=== PATIENT | female | born 1995 | race American Indian/Alaskan Native ===

== ENCOUNTER 2017-10-04 20:39 | Emergency (ER) | payer OTHER ==
[2017-10-04] MEDS ORDERED: TYLENOL ONE (21:13)
[2017-10-04] MEDS ORDERED: TYLENOL PO ONE (21:25)
[2017-10-04 21:40] LABS: HCG Qualitative,Urine Negative (Negative)
--- NOTE | 2017-10-04 23:01 | XRay Report ---
FINAL REPORT PROCEDURE: XR KNEE BILAT 1-2V TECHNIQUE: Bilateral knee radiographs, AP and lateral views. HISTORY: Bilateral knee pain COMPARISON: No prior studies are available for comparison. FINDINGS: Fracture (s) and/or Dislocation(s): None . Joint space(s): Normal. Soft tissues: Normal. Bone mineralization: Normal. Foreign bodies: None. IMPRESSION: Normal Examination.
--- NOTE | 2017-10-04 23:04 | XRay Report ---
FINAL REPORT PROCEDURE: XR SPINE CERVICAL 2-3V TECHNIQUE: Cervical spine radiographs, AP, lateral, and open-mouth odontoid views. CPT 99204 HISTORY: Neck Pain COMPARISON: No prior studies are available for comparison. FINDINGS: Prevertebral soft tissues: Normal . Alignment: There is loss of cervical lordosis. Vertebral body heights/Disk spaces: Normal . Fracture(s): None . Facets: Normal . Bone mineralization: Normal . IMPRESSION: No acute fracture. Loss of cervical lordosis is most likely secondary to spasm.
--- NOTE | 2017-10-04 23:04 | XRay Report ---
FINAL REPORT PROCEDURE: XR SPINE LUMBOSACRAL 2-3V TECHNIQUE: Lumbar spine radiographs, frontal and lateral views. CPT 02787 HISTORY: Back pain COMPARISON: No prior studies are available for comparison. FINDINGS: Alignment: Normal . Vertebral body heights/Disk spaces: Normal . Fracture(s): None . Facets: Normal . Bone mineralization: Normal . IMPRESSION: Normal Examination
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
[2017-10-05 01:11] VITALS: BP 108/77
== END 2017-10-05 01:20 | disposition home or self-care (01) ==
LOC: ED 20:39
DX: S39.012A Strain of muscle, fascia and tendon of lower back, initial encounter (principal); S13.4XXA Sprain of ligaments of cervical spine, initial encounter; S83.8X1A Sprain of other specified parts of right knee, initial encounter; S83.8X2A Sprain of other specified parts of left knee, initial encounter; V89.2XXA Person injured in unspecified motor-vehicle accident, traffic, initial encounter
CPT/HCPCS: 72040; 72100; 81025; 99284

== ENCOUNTER 2020-04-22 18:03 | Observation (INO) | payer BC, MEDICAID ==
[2020-04-22] MEDS ORDERED: PIPERACIL/TAZOBACTA 4.5/NS 100 4.5 GM/100 ML VIAL IV ONE (18:35)
[2020-04-22] MEDS ORDERED: SODIUM CHLORIDE 0.9% 1000 ML 1,000 ML IV ONE ×2 (18:45→20:00)
[2020-04-22] MEDS ORDERED: ONDANSETRON 4 MG/2 ML INJ IV ONE (18:45)
[2020-04-22] MEDS ORDERED: MORPHINE 4 MG/1 ML INJ IV ONE ×2 (18:45→22:38)
--- NOTE | 2020-04-22 19:11 | Emergency Department Report ---
ED Abdominal Pain HPI - General Chief Complaint: Abdominal Pain Stated Complaint: POSS APENDIX RUPTURE Time Seen by Provider: 04/22/20 18:34 Source: patient Mode of arrival: Ambulatory Limitations: No Limitations - History of Present Illness Initial Comments: 24-year-old female no significant past medical surgical history presents to the hospital complaining of right lower quadrant abd pain for the last 3 days. Pain is currently 7/10 intensity, worse with laughing, movement, and palpation. Positive associated nausea vomiting. She denies fever. She had a recent negative test. She went to urgent care earlier today and was sent for outpatient CT scanning with [facility] radiology clinic in [place]. Patient was sent to the ED with the CT images on disc and told that she possibly has ruptured appendicitis. No report is available. - Related Data Previous Rx's Medication Instructions Recorded Last Taken Type Cyclobenzaprine [Flexeril] 10 mg PO QHS PRN #7 tablet 10/05/17 Unknown Rx Ibuprofen [Motrin] 600 mg PO Q8H PRN #30 tablet 10/05/17 Unknown Rx Allergies Allergy/AdvReac Type Severity Reaction Status Date / Time No Known Allergies Allergy Verified 10/04/17 21:18 ED Review of Systems ROS: Stated complaint: POSS APENDIX RUPTURE Other details as noted in HPI Comment: All other systems reviewed and negative ED Past Medical Hx - Past Medical History Previous Medical History?: No - Surgical History Past Surgical History?: No - Social History Smoking Status: Never Smoker - Medications Home Medications: Home Medications Medication Instructions Recorded Confirmed Last Taken Type Cyclobenzaprine [Flexeril] 10 mg PO QHS PRN #7 tablet 10/05/17 Unknown Rx Ibuprofen [Motrin] 600 mg PO Q8H PRN #30 tablet 10/05/17 Unknown Rx ED Physical Exam - General Limitations: No Limitations - Other Other exam information: General: No acute distress Head: Atraumatic Eyes: normal appearance ENT: Moist mucous membranes Neck: Normal appearance, no midline tenderness Chest: Clear to auscultation bilaterally CV: Regular rate and rhythm Abdomen: Soft, normal bowel sounds, tenderness to right lower quadrant with rebound tenderness. No guarding. No distention. Back: Normal inspection Extremity: Normal inspection, full range of motion Neuro: Alert O x 3, no facial asymmetry, speech clear, no gross motor sensory deficit Psych: Appropriate behavior Skin: No rash ED Course Vital Signs 04/22/20 04/22/20 04/22/20 18:14 18:59 23:09 Temperature 98.6 F 98 F Pulse Rate 107 H 76 Respiratory 18 18 16 Rate Blood Pressure 123/75 Blood Pressure 127/81 [Left] O2 Sat by Pulse 100 98 Oximetry - Reevaluation(s) Reevaluation #1: 04/22/20 19:11 pt comes in to the ed with her ct scan and and and pelvis with IV contrast on disc. No one is answering the number provided by the patient to call for official report. I discussed this with radiologic technologist chief and she spoke to her restaurant supervisor and they are calling someone in so that they can upload the images to PACS for official read by the radiologist since we do not have in-house radiologist at this time. In the meantime patient is receiving Zosyn, pain medication IV fluids, n.p.o., labs are pending - Consultations Consultation #1: 04/22/20 19:40, 20:05 Dr Joe carrillo responded at 20:20 will operate in am, npo, abx, ivf ED Medical Decision Making - Lab Data Result diagrams: 04/22/20 18:46 04/22/20 18:46 Lab Results 04/22/20 04/22/20 04/22/20 Range/Units 18:46 18:46 18:46 WBC 9.2 (4.5-11.0) K/mm3 RBC 4.26 (3.65-5.03) M/mm3 Hgb 14.0 (10.1-14.3) gm/dl Hct 41.2 (30.3-42.9) % MCV 97 (79-97) fl MCH 33 H (28-32) pg MCHC 34 (30-34) % RDW 12.8 L (13.2-15.2) % Plt Count 241 (140-440) K/mm3 Lymph % (Auto) 15.5 (13.4-35.0) % [place] % (Auto) 7.4 H (0.0-7.3) % Eos % (Auto) 0.2 (0.0-4.3) % Baso % (Auto) 0.3 (0.0-1.8) % Lymph # (Auto) 1.4 (1.2-5.4) K/mm3 [place] # (Auto) 0.7 (0.0-0.8) K/mm3 Eos # (Auto) 0.0 (0.0-0.4) K/mm3 Baso # (Auto) 0.0 (0.0-0.1) K/mm3 Seg Neutrophils % 76.6 H (40.0-70.0) % Seg Neutrophils # 7.0 (1.8-7.7) K/mm3 PT 15.8 H (12.2-14.9) Sec. INR 1.23 H (0.87-1.13) APTT 31.9 (24.2-36.6) Sec. Sodium 135 L (137-145) mmol/L Potassium 4.0 (3.6-5.0) mmol/L Chloride 97.8 L (98-107) mmol/L Carbon Dioxide 25 (22-30) mmol/L Anion Gap 16 mmol/L BUN 8 (7-17) mg/dL Creatinine 0.7 (0.6-1.2) mg/dL Estimated GFR > 60 ml/min BUN/Creatinine Ratio 11 % Glucose 70 (65-100) mg/dL Calcium 9.4 (8.4-10.2) mg/dL Total Bilirubin 0.70 (0.1-1.2) mg/dL AST 15 (5-40) units/L ALT 8 (7-56) units/L Alkaline Phosphatase 51 (35-129) units/L Total Protein 7.6 (6.3-8.2) g/dL Albumin 4.4 (3.9-5) g/dL Albumin/Globulin Ratio 1.4 % HCG, Qual (Negative) Blood Type Antibody Screen 04/22/20 04/22/20 Range/Units 18:46 18:46 WBC (4.5-11.0) K/mm3 RBC (3.65-5.03) M/mm3 Hgb (10.1-14.3) gm/dl Hct (30.3-42.9) % MCV (79-97) fl MCH (28-32) pg MCHC (30-34) % RDW (13.2-15.2) % Plt Count (140-440) K/mm3 Lymph % (Auto) (13.4-35.0) % [place] % (Auto) (0.0-7.3) % Eos % (Auto) (0.0-4.3) % Baso % (Auto) (0.0-1.8) % Lymph # (Auto) (1.2-5.4) K/mm3 [place] # (Auto) (0.0-0.8) K/mm3 Eos # (Auto) (0.0-0.4) K/mm3 Baso # (Auto) (0.0-0.1) K/mm3 Seg Neutrophils % (40.0-70.0) % Seg Neutrophils # (1.8-7.7) K/mm3 PT (12.2-14.9) Sec. INR (0.87-1.13) APTT (24.2-36.6) Sec. Sodium (137-145) mmol/L Potassium (3.6-5.0) mmol/L Chloride (98-107) mmol/L Carbon Dioxide (22-30) mmol/L Anion Gap mmol/L BUN (7-17) mg/dL Creatinine (0.6-1.2) mg/dL Estimated GFR ml/min BUN/Creatinine Ratio % Glucose (65-100) mg/dL Calcium (8.4-10.2) mg/dL Total Bilirubin (0.1-1.2) mg/dL AST (5-40) units/L ALT (7-56) units/L Alkaline Phosphatase (35-129) units/L Total Protein (6.3-8.2) g/dL Albumin (3.9-5) g/dL Albumin/Globulin Ratio % HCG, Qual Negative (Negative) Blood Type O POSITIVE Antibody Screen Negative - Radiology Data Radiology results: report reviewed CT abdomen pelvis with IV contrast as read by our radiologist after uploading images shows findings consistent with appendicitis without rupture or a ppendiceal abscess. Small quantity of fluid in the pelvis is likely reactive Hard copy of report placed on chart - Medical Decision Making hard copy of report placed on chart pt provided the disc to hold so it will not accident get lost on chart Patient had acute appendicitis without rupture. Patient made n.p.o., received IV fluids and IV Zosyn. Case discussed with on-call surgeon Dr. Miller who plans to perform appendectomy in a.m. Patient to be admitted to hospital service Dr. John/[facility] Critical Care Time: No Critical care attestation.: If time is entered above; I have spent that time in minutes in the direct care of this critically ill patient, excluding procedure time. ED Disposition Clinical Impression: Acute appendicitis Disposition: OP ADMIT IP TO THIS HOSP Is pt being admited?: Yes Condition: Stable Time of Disposition: 22:14 (Dr John/hosp)
[2020-04-22 19:13] LABS: Basophils % (Auto) 0.3 % (0.0-1.8); Eosinophils % (Auto) 0.2 % (0.0-4.3); Hematocrit 41.2 % (30.3-42.9); Lymphocytes # (Auto) 1.4 K/mm3 (1.2-5.4); Lymphocytes % (Auto) 15.5 % (13.4-35.0); Mean Corpuscular HGB Conc 34 % (30-34); Mean Corpuscular Volume 97 fl (79-97); Monocytes # (Auto) 0.7 K/mm3 (0.0-0.8); Monocytes % (Auto) 7.4 % (0.0-7.3); Platelet Count 241 K/mm3 (140-440); Red Blood Count 4.26 M/mm3 (3.65-5.03); Red Cell Distribution Width 12.8 % (13.2-15.2)
[2020-04-22 19:23] LABS: INR 1.23 (0.87-1.13)
[2020-04-22 19:24] LABS: Partial Thromboplastin Time 31.9 Sec. (24.2-36.6)
[2020-04-22 19:35] LABS: Alanine Aminotransferase 8 units/L (7-56); Albumin 4.4 g/dL (3.9-5); BUN/Creatinine Ratio 11; Blood Urea Nitrogen 8 mg/dL (7-17); Calcium 9.4 mg/dL (8.4-10.2); Hemolysis Index 8
[2020-04-22] MEDS ORDERED: MAGNESIUM HYDROXIDE (MOM) ORAL LIQD UDC PO PRN (22:50)
[2020-04-22] MEDS ORDERED: ACETAMINOPHEN 325 MG TAB PO PRN (22:50)
--- NOTE | 2020-04-22 22:56 | History and Physical Report ---
History of Present Illness Date of examination: 04/22/20 Date of admission: 04/22/20 22:14 Chief complaint: Abdominal Pain History of present illness: 24-year old -[place] female presenting to the emergency room today complaining of abdominal pain which has been ongoing for about 3 days. Abdominal pain is said to be more on the right lower abdomen. On a scale of 10 pain was about 7-8 over 10 in severity. Pain is worse on movement. She has had some nausea but no vomiting and no diarrhea. She denies any fever or chills. She denies any chest pain or shortness of breath. She denies any hematuria or dysuria. She denies any vaginal discharge. Patient went to an urgent care facility prior to reporting to the emergency room. She was sent on outpatient CT scan at [facility] radiology in [place]. CT scan was significant for acute appendicitis. General surgeon Dr. Diaz has been consulted by the ER physician. Patient has been started on IV fluid, IV analgesic medication and empiric IV antibiotics. Past History Past Medical History: No medical history Past Surgical History: No surgical history Social history: no significant social history Family history: cancer (Cervical cancer in mother, Breast ca. in grand mother), diabetes (in parents) Medications and Allergies Allergies Allergy/AdvReac Type Severity Reaction Status Date / Time No Known Allergies Allergy Verified 10/04/17 21:18 Home Medications Medication Instructions Recorded Confirmed Last Taken Type Cyclobenzaprine [Flexeril] 10 mg PO QHS PRN #7 tablet 10/05/17 Unknown Rx Ibuprofen [Motrin] 600 mg PO Q8H PRN #30 tablet 10/05/17 Unknown Rx Active Meds: Active Medications Acetaminophen (Tylenol) 650 mg PO Q4H PRN PRN Reason: Pain MILD(1-3)/Fever >100.5/MOONEY Sodium Chloride (Nacl 0.9% 1000 Ml) 1,000 mls @ 150 mls/hr IV BOLUS ONE Stop: 04/23/20 02:39 Last Admin: 04/22/20 20:54 Dose: 150 mls/hr Documented by: Sodium Chloride (Nacl 0.9% 1000 Ml) 1,000 mls @ 125 mls/hr IV DIRECT AMBER Piperacillin Sod/Tazobactam Sod (Zosyn/Ns 3.375gm/50ml) 3.375 gm in 50 mls @ 100 mls/hr IV Q8HR AMBER; Protocol Magnesium Hydroxide (Milk Of Magnesia) 30 ml PO Q4H PRN PRN Reason: Constipation Morphine Sulfate (Morphine) 2 mg IV Q4H PRN PRN Reason: Pain, Moderate (4-6) Ondansetron HCl (Zofran) 4 mg IV Q8H PRN PRN Reason: Nausea And Vomiting Sodium Chloride (Sodium Chloride Flush Syringe 10 Ml) 10 ml IV BID AMBER Sodium Chloride (Sodium Chloride Flush Syringe 10 Ml) 10 ml IV PRN PRN PRN Reason: LINE FLUSH Review of Systems Constitutional: no fever, no chills Ears, nose, mouth and throat: no nasal congestion, no sore throat Cardiovascular: no chest pain, no palpitations Respiratory: no cough, no shortness of breath Gastrointestinal: abdominal pain, nausea, no vomiting, no diarrhea Genitourinary Female: no dysuria, no urinary frequency, no urgency, no hematuria Musculoskeletal: no neck pain, no low back pain Integumentary: no rash, no pruritis Neurological: no headaches, no confusion Psychiatric: no anxiety, no depression Exam - Constitutional Vitals: Temp Pulse Resp BP Pulse Ox 98.6 F 107 H 18 123/75 100 04/22/20 18:14 04/22/20 18:14 04/22/20 18:59 04/22/20 18:14 04/22/20 18:14 General appearance: Present: no acute distress, well-nourished - EENT Eyes: Present: PERRL, EOM intact. Absent: scleral icterus ENT: hearing intact, clear oral mucosa, dentition normal - Neck Neck: Present: supple, normal ROM - Respiratory Respiratory effort: normal Respiratory: bilateral: CTA - Cardiovascular Rhythm: regular Heart Sounds: Present: S1 & S2. Absent: gallop, systolic murmur, diastolic murmur, rub - Extremities Extremities: no ischemia, pulses intact, pulses symmetrical, No edema, Full ROM Peripheral Pulses: within normal limits - Abdominal General gastrointestinal: Present: soft, tender (Right lower quadrant), non- distended, normal bowel sounds. Absent: mass Localized gastrointestinal: guarding: RLQ - Integumentary Integumentary: Present: clear, warm, dry - Musculoskeletal Musculoskeletal: strength equal bilaterally - Psychiatric Psychiatric: appropriate mood/affect, intact judgment & insight, memory intact, cooperative - Neurologic Neurologic: CNII-XII intact, no focal deficits, moves all extremities Results - Labs CBC & Chem 7: 04/22/20 18:46 04/22/20 18:46 Labs: Abnormal lab results 04/22/20 04/22/20 04/22/20 Range/Units 18:46 18:46 18:46 MCH 33 H (28-32) pg RDW 12.8 L (13.2-15.2) % [place] % (Auto) 7.4 H (0.0-7.3) % Seg Neutrophils % 76.6 H (40.0-70.0) % PT 15.8 H (12.2-14.9) Sec. INR 1.23 H (0.87-1.13) Sodium 135 L (137-145) mmol/L Chloride 97.8 L (98-107) mmol/L Assessment and Plan - Patient Problems (1) Acute appendicitis Current Visit: Yes Status: Acute Plan to address problem: Patient placed on IV fluid, IV analgesic medication and empiric IV antibiotics. General surgeon Dr. Diaz has been consulted. (2) DVT prophylaxis Current Visit: Yes Status: Acute Plan to address problem: Patient placed on sequential compression device. (3) Full code status Current Visit: Yes Status: Acute
[2020-04-22] MEDS ORDERED: SODIUM CHLORIDE 0.9% 1000 ML 1,000 ML IV SCH (23:00)
[2020-04-22] MEDS ORDERED: MORPHINE 4 MG/1 ML INJ ONE (23:03)
[2020-04-23] MEDS: MORPHINE 2 MG/1 ML INJ IV PRN ×2 (05:30→21:44)
[2020-04-23 05:34] LABS: Basophils % (Auto) 0.3 % (0.0-1.8); Eosinophils % (Auto) 0.3 % (0.0-4.3); Hematocrit 34.8 % (30.3-42.9); Hemoglobin 12.1 gm/dl (10.1-14.3); Lymphocytes # (Auto) 1.4 K/mm3 (1.2-5.4); Lymphocytes % (Auto) 13.9 % (13.4-35.0); Mean Corpuscular HGB Conc 35 % (30-34); Mean Corpuscular Volume 96 fl (79-97); Monocytes # (Auto) 0.8 K/mm3 (0.0-0.8); Platelet Count 216 K/mm3 (140-440); Red Blood Count 3.62 M/mm3 (3.65-5.03); Red Cell Distribution Width 12.8 % (13.2-15.2)
[2020-04-23 05:43] LABS: INR 1.34 (0.87-1.13)
[2020-04-23] MEDS ORDERED: PIPERACILLIN/TAZOBACTAM 3.375 3.375 GM/50 ML BAG IV SCH (06:00)
[2020-04-23 06:35] LABS: Blood Urea Nitrogen 9 mg/dL (7-17); Calcium 8.5 mg/dL (8.4-10.2); Hemolysis Index 2
[2020-04-23 06:46] LABS: BUN/Creatinine Ratio 13
[2020-04-23] MEDS ORDERED: BUPIVACAINE-EPINEPHRINE/PF 0.5%-1:200,000 (30 ML) VIAL INFILTRATI ONE ×3 (10:52→13:30)
[2020-04-23] MEDS ORDERED: LACTATED RINGERS 1,000 ML ONE ×2 (11:15→13:18)
[2020-04-23] MEDS ORDERED: SCOPOLAMINE TRANSDERMAL PATCH 72 HR TD ONE (11:20)
[2020-04-23] MEDS ORDERED: MIDAZOLAM 2 MG/2 ML INJ ONE (11:20)
--- NOTE | 2020-04-23 11:25 | Anesthesia Day of Surgery ---
Anesthesia Day of Surgery - Day of Surgery Patient Examined: Yes Patient H&P Reviewed: Yes Patient is NPO: Yes
--- NOTE | 2020-04-23 11:25 | Anesthesia Consultation ---
Anesthesia Consult and Med Hx Date of service: 04/23/20 - Airway Anesthetic Teeth Evaluation: Good ROM Head & Neck: Adequate Mental/Hyoid Distance: Adequate Mallampati Class: Class I Intubation Access Assessment: Good - Pulmonary Exam CTA: Yes - Cardiac Exam Cardiac Exam: RRR - Pre-Operative Health Status ASA Pre-Surgery Classification: ASA2 Proposed Anesthetic Plan: General - Pulmonary Hx Smoking: Yes (THC) Hx Respiratory Symptoms: No - Cardiovascular System Hx Hypertension: No - Central Nervous System CVA: No - Gastrointestinal Hx Gastroesophageal Reflux Disease: No - Endocrine Hx Renal Disease: No Hx Liver Disease: No Hx Insulin Dependent Diabetes: No Hx Non-Insulin Dependent Diabetes: No Hx Thyroid Disease: No - Hematic Hx Anemia: No - Other Systems Hx Obesity: No - Additional Comments Anesthesia Medical History Comments: No prior GA or FHx anesthetic complications. No N/V today.
[2020-04-23] MEDS ORDERED: SCOPOLAMINE TRANSDERMAL PATCH 72 HR TD NR (11:30)
[2020-04-23] MEDS ORDERED: ONDANSETRON 4 MG/2 ML INJ IV PRN (11:30)
[2020-04-23] MEDS: LACTATED RINGERS 1,000 ML IV SCH (11:30)
[2020-04-23] MEDS ORDERED: MEPERIDINE 25 MG/1 ML INJ IV PRN (11:30)
[2020-04-23] MEDS ORDERED: MIDAZOLAM 2 MG/2 ML INJ IV SCH (11:30)
[2020-04-23] MEDS ORDERED: HYDROmorphone 1 MG/1 ML INJ ONE (12:06)
[2020-04-23] MEDS ORDERED: propofoL 200 MG/20 ML VIAL IV ONE (12:06)
[2020-04-23] MEDS ORDERED: LIDOCAINE MPF (2%) 20 MG/1 ML VIAL 5 ML ONE (12:06)
[2020-04-23] MEDS ORDERED: ROCURONIUM 50 MG/5 ML INJ IV ONE (12:06)
[2020-04-23] MEDS ORDERED: ONDANSETRON 4 MG/2 ML INJ ONE (12:06)
[2020-04-23] MEDS ORDERED: PIPERACIL/TAZOBACTA 4.5/NS 100 4.5 GM/100 ML VIAL IV SCH (14:00)
[2020-04-23] MEDS ORDERED: GLYCOPYRROLATE 0.4 MG/2 ML INJ ONE (14:08)
[2020-04-23] MEDS ORDERED: NEOSTIGMINE 10MG/10 ML INJ MDV ONE (14:08)
[2020-04-23] MEDS ORDERED: KETOROLAC 30 MG/1 ML INJ ONE (14:11)
--- NOTE | 2020-04-23 14:45 | Consultation ---
History of Present Illness Consult date: 04/23/20 Chief complaint: RLQ pain - History of present illness History of present illness: 24 yo female with 2 days of RLQ pain, nausea and vomiting. She denies associated fever, chills, hematochezia, melena or urinary complaints. The pain has been constant and seems to be slowly getting worse. Past History Past Medical History: No medical history Past Surgical History: No surgical history Social history: no significant social history Family history: cancer (Cervical cancer in mother, Breast ca. in grand mother), diabetes (in parents) Medications and Allergies Allergies Allergy/AdvReac Type Severity Reaction Status Date / Time No Known Allergies Allergy Verified 10/04/17 21:18 Home Medications Medication Instructions Recorded Confirmed Last Taken Type No Known Home Medications [No 04/23/20 04/23/20 Unknown History Reported Home Medications] Active Meds: Active Medications Acetaminophen (Tylenol) 650 mg PO Q4H PRN PRN Reason: Pain MILD(1-3)/Fever >100.5/MOONEY Hydromorphone HCl (Dilaudid) 0.5 mg IV Q10MIN PRN PRN Reason: Pain , Severe (7-10) Stop: 04/23/20 19:00 Sodium Chloride (Nacl 0.9% 1000 Ml) 1,000 mls @ 125 mls/hr IV DIRECT AMBER Last Admin: 04/23/20 02:00 Dose: 125 mls/hr Documented by: Piperacillin Sod/Tazobactam Sod (Zosyn/Ns 4.5gm/100ml) 4.5 gm in 100 mls @ 200 mls/hr IV Q8HR AMBER Lactated Ringer's (Lactated Ringers) 1,000 mls @ 100 mls/hr IV DIRECT AMBER Last Admin: 04/23/20 11:30 Dose: 100 mls/hr Documented by: Magnesium Hydroxide (Milk Of Magnesia) 30 ml PO Q4H PRN PRN Reason: Constipation Meperidine HCl (Demerol) 25 mg IV ONCE PRN PRN Reason: Shivering Stop: 04/23/20 19:00 Midazolam HCl (Versed) 2 mg IV ONCE AMBER Stop: 04/23/20 20:00 Last Admin: 04/23/20 11:38 Dose: 2 mg Documented by: Morphine Sulfate (Morphine) 2 mg IV Q4H PRN PRN Reason: Pain, Moderate (4-6) Last Admin: 04/23/20 05:30 Dose: 2 mg Documented by: Ondansetron HCl (Zofran) 4 mg IV Q8H PRN PRN Reason: Nausea And Vomiting Ondansetron HCl (Zofran) 4 mg IV ONCE PRN PRN Reason: Nausea And Vomiting Stop: 04/23/20 19:00 Scopolamine (Transderm-Scop) 1 each TD PREOP NR Stop: 04/23/20 20:00 Last Admin: 04/23/20 11:35 Dose: 1 each Documented by: Sodium Chloride (Sodium Chloride Flush Syringe 10 Ml) 10 ml IV BID AMBER Last Admin: 04/23/20 09:33 Dose: 10 ml Documented by: Sodium Chloride (Sodium Chloride Flush Syringe 10 Ml) 10 ml IV PRN PRN PRN Reason: LINE FLUSH Review of Systems All systems: negative (none) Exam Vital Signs Temp Pulse Resp BP Pulse Ox 98.6 F 107 H 18 123/75 100 04/22/20 18:14 04/22/20 18:14 04/22/20 18:14 04/22/20 18:14 04/22/20 18:14 - General physical appearance Positive: well developed, well nourished, no distress - Eyes Positive: PERRL, normal occular movement - ENT Positive: normal pinna, normal nares, normal mucosa, no hearing loss, no congestion - Neck Positive: no masses, no bruits, trachea midline, no venous distension - Respiratory Positive: normal expansion, normal respiratory effort, clear to auscultation - Cardiovascular Rhythm: regular Heart Sounds: Present: S1 & S2. Absent: rub, click - Extremities Extremities: no ischemia, pulses symmetrical, No edema - Breasts Breasts: deferred - Abdomen Abdomen: Present: other (Flat, bowel sounds hypoactive; There is RLQ tenderness with guarding but no rebound.) - Genitourinary Female Genitourinary: deferred - Integumentary no rash, no growths, no abnormal pigmentation - Neurologic Neurologic: alert and oriented to time, place and person, motor strength and sensation are grossly intact - Musculoskeletal normal gait, normal posture - Psychiatric Psychiatric: appropriate mood/affect, intact judgment & insight Results - Labs 04/23/20 04:24 04/23/20 04:24 Abnormal lab results 04/22/20 04/22/20 04/22/20 Range/Units 18:46 18:46 18:46 RBC (3.65-5.03) M/mm3 MCH 33 H (28-32) pg MCHC (30-34) % RDW 12.8 L (13.2-15.2) % [place] % (Auto) 7.4 H (0.0-7.3) % Seg Neutrophils % 76.6 H (40.0-70.0) % Seg Neutrophils # (1.8-7.7) K/mm3 PT 15.8 H (12.2-14.9) Sec. INR 1.23 H (0.87-1.13) Sodium 135 L (137-145) mmol/L Chloride 97.8 L (98-107) mmol/L Glucose (65-100) mg/dL 04/23/20 04/23/20 04/23/20 Range/Units 04:24 04:24 04:24 RBC 3.62 L (3.65-5.03) M/mm3 MCH 34 H (28-32) pg MCHC 35 H (30-34) % RDW 12.8 L (13.2-15.2) % [place] % (Auto) 8.0 H (0.0-7.3) % Seg Neutrophils % 77.5 H (40.0-70.0) % Seg Neutrophils # 7.8 H (1.8-7.7) K/mm3 PT 16.9 H (12.2-14.9) Sec. INR 1.34 H (0.87-1.13) Sodium (137-145) mmol/L Chloride (98-107) mmol/L Glucose 55 L (65-100) mg/dL Diabetes panel 04/22/20 04/23/20 Range/Units 18:46 04:24 Sodium 135 L 138 (137-145) mmol/L Potassium 4.0 4.0 (3.6-5.0) mmol/L Chloride 97.8 L 103.6 (98-107) mmol/L Carbon Dioxide 25 24 (22-30) mmol/L BUN 8 9 (7-17) mg/dL Creatinine 0.7 0.7 (0.6-1.2) mg/dL Glucose 70 55 L (65-100) mg/dL Calcium 9.4 8.5 (8.4-10.2) mg/dL AST 15 (5-40) units/L ALT 8 (7-56) units/L Alkaline Phosphatase 51 (35-129) units/L Total Protein 7.6 (6.3-8.2) g/dL Albumin 4.4 (3.9-5) g/dL Calcium panel 04/22/20 04/23/20 Range/Units 18:46 04:24 Calcium 9.4 8.5 (8.4-10.2) mg/dL Albumin 4.4 (3.9-5) g/dL Pituitary panel 04/22/20 04/23/20 Range/Units 18:46 04:24 Sodium 135 L 138 (137-145) mmol/L Potassium 4.0 4.0 (3.6-5.0) mmol/L Chloride 97.8 L 103.6 (98-107) mmol/L Carbon Dioxide 25 24 (22-30) mmol/L BUN 8 9 (7-17) mg/dL Creatinine 0.7 0.7 (0.6-1.2) mg/dL Glucose 70 55 L (65-100) mg/dL Calcium 9.4 8.5 (8.4-10.2) mg/dL Adrenal panel 04/22/20 04/23/20 Range/Units 18:46 04:24 Sodium 135 L 138 (137-145) mmol/L Potassium 4.0 4.0 (3.6-5.0) mmol/L Chloride 97.8 L 103.6 (98-107) mmol/L Carbon Dioxide 25 24 (22-30) mmol/L BUN 8 9 (7-17) mg/dL Creatinine 0.7 0.7 (0.6-1.2) mg/dL Glucose 70 55 L (65-100) mg/dL Calcium 9.4 8.5 (8.4-10.2) mg/dL Total Bilirubin 0.70 (0.1-1.2) mg/dL AST 15 (5-40) units/L ALT 8 (7-56) units/L Alkaline Phosphatase 51 (35-129) units/L Total Protein 7.6 (6.3-8.2) g/dL Albumin 4.4 (3.9-5) g/dL - Imaging CT scan - abdomen: report reviewed CT scan - pelvis: report reviewed Assessment and Plan - Patient Problems (1) Acute appendicitis Current Visit: Yes Status: Acute Plan to address problem: 1) IV Zosyn 2) To OR for lap appy 3) NPO
[2020-04-23] MEDS: HYDROmorphone 1 MG/1 ML INJ IV PRN ×2 (14:46→14:55)
--- NOTE | 2020-04-23 14:47 | Procedure Note ---
Date of procedure: 04/23/20 Pre-op diagnosis: acute appendicitis Post-op diagnosis: same Procedure: Diagnostic laparoscopy with attempted laparoscopy appendectomy with conversion to open appendectomy Description of procedure: Pt was placed supine on the OR table. GETA was administered. Abdomen was prepped and draped. A small infraumbilical incision was made and the peritoneal cavity carefully entered. A Adriana port was inserted into the peritoneal cavity and pneumoperitoneum established. 5 mm ports were inserted into the peritoneal cavity under direct vision in the suprapubic space and LLQ. Pt was placed in a Trendelenburg position with her right side rotated upward. The inflammatory process in the RLQ was moderately severe and the appendix was not immediately identified. With slow careful dissection, I identified what appeared to be the tip of the appendix. The tip of the appendix and the appendix itself appeared to be densely adherent to the adjacent ileum and I did not feel that the appendix could be safely dissected off of the ileum without possibly damaging the ileum. The attempted laparoscopic appendectomy was therefore aborted. Ports were removed and pneumoperitoneum was released. A transverse incision was made over McBurney's point. Peritoneal cavity was enter using a muscle splitting technique. Cecum, appendix and TI were delivered through the wound. The above laparoscopic findings were confirmed. The appendix was carefully dissected off of the TI and the mesoappendix clamped, divided and tied with 2-0 silk ties. Base of the appendix was doubly clamped with Roseanne clamps and the appendix amputated between the clamps. Appendix was passed off the table. The base of the appendix was ligated with a 0-silk tie. Exposed appendiceal mucosa was cauterized. The cecum and TI were replaced into the peritoneal cavity. Deep fascia was closed with a running 2-0 Vicryl. Wound was irrigated with warm saline. Superficial fascia was closed with another 2-0 Vicryl. The infraumbilical fascial defect was closed with 2 interrupted sutures of 0-Vicryl. Skin incisions were closed with running subcuticular sutures of 4- 0 Monocryl. Skin incisions were then covered with skin glue. Pt tolerated the procedure well. She was taken to PACU in stable condition. Anesthesia: GETA Surgeon: RAJNI ZABALA Estimated blood loss: minimal Pathology: list (Appendix) Specimen disposition: to lab Condition: stable Disposition: PACU
[2020-04-23] MEDS: ONDANSETRON 4 MG/2 ML INJ IV PRN ×2 (15:30→21:44)
--- NOTE | 2020-04-23 15:52 | Post Anesthesia Evaluation ---
- Post Anesthesia Evaluation Patient Participated: Yes Airway Patent: Yes Stable Respiratory Function: Yes Nausea/Vomiting: No Temp > 96.8F: Yes Pain Manageable: Yes Adequeate Hydration: Yes Anesthesia Complications: No
--- NOTE | 2020-04-23 17:43 | Progress Note ---
Assessment and Plan - Patient Problems (1) Acute appendicitis Current Visit: Yes Status: Acute Qualifiers: Appendicitis gangrene presence: without gangrene Plan to address problem: Patient had an outside CT abdomen which showed acute appendicitis Surgery was consulted 04/23 diagnostic laparoscopy with attempted laparoscopy appendectomy with conversion to open appendectomy with Dr. Calderón 04/22 IV Zosyn was initiated and discontinued postop on 04/23 04/23 clear liquid diet, advance as tolerated s/p 3 L normal saline in the emergency department (2) Hyponatremia Current Visit: Yes Status: Resolved Plan to address problem: Admit sodium 135 04/23 sodium 138 Trend BMP (3) Hypochloremia Current Visit: Yes Status: Resolved Plan to address problem: Admitting chloride 90.7 04/23 chloride 103.6 Trend BMP (4) DVT prophylaxis Current Visit: Yes Status: Acute Plan to address problem: SCDs to bilateral lower extremities History Interval history: 24-year old -[place] female who smokes marijuana ocaasionally presented to the emergency room on 04/22 complaining of right lower quadrant abdominal pain which has been ongoing for about 3 days rated at a 7-8/10 which worsens with movement and some nausea but no vomiting or diarrhea. Patient underwent an outpatient CT scan at an urgent care which showed acute appendicitis. Surgery was consulted. Patient was made n.p.o. and started on empiric antibiotics IV fluids and IV analgesic. Today she had a diagnostic laparoscopy with attempted laparoscopic appendectomy with conversion to open appendectomy. The time of my examination she has mild abdominal pain at the surgical site. She has bowel sounds and there pressure start on a clear liquid diet. She was noted to be hypoglycemic on her a.m. labs with a blood glucose of 55 patient was taken to the OR electrician technician. Hospitalist Physical - Constitutional Vitals: Temp Pulse Resp BP Pulse Ox 98.1 F 73 18 123/69 97 04/23/20 15:59 04/23/20 15:59 04/23/20 15:59 04/23/20 15:59 04/23/20 16:11 General appearance: Present: no acute distress, well-nourished - EENT Eyes: Present: PERRL, EOM intact ENT: hearing intact, clear oral mucosa, dentition normal - Neck Neck: Present: supple, normal ROM - Respiratory Respiratory effort: normal Respiratory: bilateral: CTA - Cardiovascular Rhythm: regular Heart Sounds: Present: S1 & S2. Absent: systolic murmur, diastolic murmur - Extremities Extremities: no ischemia, pulses intact, pulses symmetrical, No edema, normal temperature, normal color, Full ROM Peripheral Pulses: within normal limits - Abdominal General gastrointestinal: soft, tender, non-distended, hypoactive bowel sounds - Integumentary Integumentary: Present: warm, dry - Psychiatric Psychiatric: appropriate mood/affect, cooperative - Neurologic Neurologic: CNII-XII intact, no focal deficits, moves all extremities Results - Labs CBC & Chem 7: 04/23/20 04:24 04/23/20 04:24 Labs: Laboratory Last Values WBC 10.0 K/mm3 (4.5-11.0) 04/23/20 04:24 RBC 3.62 M/mm3 (3.65-5.03) L 04/23/20 04:24 Hgb 12.1 gm/dl (10.1-14.3) 04/23/20 04:24 Hct 34.8 % (30.3-42.9) D 04/23/20 04:24 MCV 96 fl (79-97) 04/23/20 04:24 MCH 34 pg (28-32) H 04/23/20 04:24 MCHC 35 % (30-34) H 04/23/20 04:24 RDW 12.8 % (13.2-15.2) L 04/23/20 04:24 Plt Count 216 K/mm3 (140-440) 04/23/20 04:24 Lymph % (Auto) 13.9 % (13.4-35.0) 04/23/20 04:24 [place] % (Auto) 8.0 % (0.0-7.3) H 04/23/20 04:24 Eos % (Auto) 0.3 % (0.0-4.3) 04/23/20 04:24 Baso % (Auto) 0.3 % (0.0-1.8) 04/23/20 04:24 Lymph # (Auto) 1.4 K/mm3 (1.2-5.4) 04/23/20 04:24 [place] # (Auto) 0.8 K/mm3 (0.0-0.8) 04/23/20 04:24 Eos # (Auto) 0.0 K/mm3 (0.0-0.4) 04/23/20 04:24 Baso # (Auto) 0.0 K/mm3 (0.0-0.1) 04/23/20 04:24 Seg Neutrophils % 77.5 % (40.0-70.0) H 04/23/20 04:24 Seg Neutrophils # 7.8 K/mm3 (1.8-7.7) H 04/23/20 04:24 PT 16.9 Sec. (12.2-14.9) H 04/23/20 04:24 INR 1.34 (0.87-1.13) H 04/23/20 04:24 APTT 31.9 Sec. (24.2-36.6) 04/22/20 18:46 Sodium 138 mmol/L (137-145) 04/23/20 04:24 Potassium 4.0 mmol/L (3.6-5.0) 04/23/20 04:24 Chloride 103.6 mmol/L (98-107) 04/23/20 04:24 Carbon Dioxide 24 mmol/L (22-30) 04/23/20 04:24 Anion Gap 14 mmol/L 04/23/20 04:24 BUN 9 mg/dL (7-17) 04/23/20 04:24 Creatinine 0.7 mg/dL (0.6-1.2) 04/23/20 04:24 Estimated GFR > 60 ml/min 04/23/20 04:24 BUN/Creatinine Ratio 13 % 04/23/20 04:24 Glucose 55 mg/dL (65-100) L 04/23/20 04:24 Calcium 8.5 mg/dL (8.4-10.2) 04/23/20 04:24 Total Bilirubin 0.70 mg/dL (0.1-1.2) 04/22/20 18:46 AST 15 units/L (5-40) 04/22/20 18:46 ALT 8 units/L (7-56) 04/22/20 18:46 Alkaline Phosphatase 51 units/L (35-129) 04/22/20 18:46 Total Protein 7.6 g/dL (6.3-8.2) 04/22/20 18:46 Albumin 4.4 g/dL (3.9-5) 04/22/20 18:46 Albumin/Globulin Ratio 1.4 % 04/22/20 18:46 HCG, Qual Negative (Negative) 04/22/20 18:46 Blood Type O POSITIVE 04/22/20 18:46 Antibody Screen Negative 04/22/20 18:46 Stacy/IV: Voiding Method Toilet IV Catheter Type [Left INT / Saline Lock Antecubital] Active Medications - Current Medications Current Medications: Generic Name Dose Route Start Last Admin Trade Name Freq PRN Reason Stop Dose Admin Acetaminophen 650 mg 04/22/20 22:50 Tylenol PO Q4H PRN Pain MILD(1-3)/Fever >100.5/MOONEY Hydromorphone HCl 0.5 mg 04/23/20 11:30 04/23/20 14:55 Dilaudid IV 04/23/20 19:00 0.5 mg Q10MIN PRN Administration Pain , Severe (7-10) Sodium Chloride 1,000 mls @ 125 mls/hr 04/22/20 23:00 04/23/20 02:00 Nacl 0.9% 1000 Ml IV 125 mls/hr DIRECT AMBER Administration Piperacillin Sod/Tazobactam Sod 4.5 gm in 100 mls @ 200 mls/hr 04/23/20 14:00 04/23/20 16:22 Zosyn/Ns 4.5gm/100ml IV Not Given Q8HR AMBER Lactated Ringer's 1,000 mls @ 100 mls/hr 04/23/20 11:30 04/23/20 11:30 Lactated Ringers IV 100 mls/hr DIRECT AMBER Administration Magnesium Hydroxide 30 ml 04/22/20 22:50 Milk Of Magnesia PO Q4H PRN Constipation Midazolam HCl 2 mg 04/23/20 11:30 04/23/20 11:38 Versed IV 04/23/20 20:00 2 mg ONCE AMBER Administration Morphine Sulfate 2 mg 04/22/20 22:50 04/23/20 05:30 Morphine IV 2 mg Q4H PRN Administration Pain, Moderate (4-6) Ondansetron HCl 4 mg 04/22/20 22:50 04/23/20 15:30 Zofran IV 4 mg Q8H PRN Administration Nausea And Vomiting Scopolamine 1 each 04/23/20 11:30 04/23/20 11:35 Transderm-Scop TD 04/23/20 20:00 1 each PREOP NR Administration Sodium Chloride 10 ml 04/23/20 10:00 04/23/20 09:33 Sodium Chloride Flush Syringe 10 Ml IV 10 ml BID AMBER Administration Sodium Chloride 10 ml 04/22/20 22:50 Sodium Chloride Flush Syringe 10 Ml IV PRN PRN LINE FLUSH
[2020-04-24] MEDS: LACTATED RINGERS 1,000 ML IV SCH (01:35)
[2020-04-24] MEDS: ONDANSETRON 4 MG/2 ML INJ IV PRN (05:08)
[2020-04-24] MEDS: MORPHINE 2 MG/1 ML INJ IV PRN ×2 (05:08→12:11)
[2020-04-24 06:52] LABS: Basophils % (Auto) 0.1 % (0.0-1.8); Eosinophils % (Auto) 0.1 % (0.0-4.3); Hematocrit 35.3 % (30.3-42.9); Hemoglobin 12.3 gm/dl (10.1-14.3); Lymphocytes # (Auto) 1.4 K/mm3 (1.2-5.4); Lymphocytes % (Auto) 12.5 % (13.4-35.0); Mean Corpuscular HGB Conc 35 % (30-34); Mean Corpuscular Volume 96 fl (79-97); Monocytes % (Auto) 9.4 % (0.0-7.3); Platelet Count 220 K/mm3 (140-440); Red Blood Count 3.69 M/mm3 (3.65-5.03)
[2020-04-24 07:03] LABS: Blood Urea Nitrogen 6 mg/dL (7-17); Calcium 8.6 mg/dL (8.4-10.2); Hemolysis Index 1
[2020-04-24 07:05] LABS: BUN/Creatinine Ratio 9
--- NOTE | 2020-04-24 11:24 | Discharge Summary ---
Providers - Providers Date of Admission: 04/22/20 22:14 Date of discharge: 04/24/20 Attending physician: TRAM GUSMAN 04/22/20 22:38 Consult to Physician [CONS] Urgent Comment: Consulting Provider: RAJNI ZABALA Physician Instructions: Reason For Exam: acute appendicitis Primary care physician: SILVA SALAZAR Hospitalization Reason for admission: acute appendicitis Condition: Stable Pertinent studies: CT abdomen and PE were c/w acute appendicitis. Procedures: Diagnostic laparoscopy with conversion to open appendectomy Hospital course: Unremarkable. Disposition: DC-01 TO HOME OR SELFCARE - Discharge Diagnoses (1) Acute appendicitis Status: Acute Qualifiers: Acute appendicitis type: with localized peritonitis Appendicitis gangrene presence: without gangrene Appendicitis perforation presence: without perforation Appendicitis abscess presence: without abscess Qualified Code(s): K35.30 - Acute appendicitis with localized peritonitis, without perforation or gangrene Core Measure Documentation - Palliative Care Palliative Care/ Comfort Measures: Not Applicable - Core Measures Any of the following diagnoses?: none - VTE Discharge Requirements Deep Vein Thrombosis/Pulmonary Embolism Present on Admission: No - Acute SC Discharge Requirements Aspirin at discharge: No Reason for no aspirin on DC: Surgical contraindication SHANNAN/ARB for LVSD if EF <40%: Not Applicable Reason for no SHANNAN/ARB: Patient refusal Reason for no beta [place] on DC: Patient refusal Reason for no statin on DC: Patient refusal - Heart Failure Discharge Requirements SHANNAN/ARB for LVSD if EF <40%: Not Applicable - Stroke Discharge Requirements Statin for LDL = or >70 mg/dl on DC: Not Applicable Exam - Constitutional Vitals: Temp Pulse Resp BP Pulse Ox 97.6 F 79 18 137/73 98 04/24/20 04:32 04/24/20 04:32 04/24/20 05:08 04/24/20 04:32 04/24/20 04:32 General appearance: Present: no acute distress, well-nourished - EENT Eyes: Present: PERRL ENT: hearing intact, clear oral mucosa - Neck Neck: Present: supple, normal ROM - Respiratory Respiratory effort: normal Respiratory: bilateral: CTA - Cardiovascular Heart Sounds: Present: S1 & S2. Absent: rub, click - Extremities Extremities: pulses symmetrical, No edema Peripheral Pulses: within normal limits - Abdominal General gastrointestinal: Present: soft, non-tender, non-distended, normal bowel sounds Female genitourinary: Present: normal - Integumentary Integumentary: Present: clear, warm, dry - Musculoskeletal Musculoskeletal: gait normal, strength equal bilaterally - Psychiatric Psychiatric: appropriate mood/affect, intact judgment & insight - Neurologic Neurologic: CNII-XII intact, moves all extremities Plan Activity: other (No lifting) Weight Bearing Status: Full Weight Bearing Diet: regular Wound: per your surgeon's advice Follow up with: SILVA SALAZAR MD [Primary Care Provider] - 7 Days Prescriptions: levoFLOXacin [Levaquin TAB] 500 mg PO QDAY 10 Days #10 tablet oxyCODONE /ACETAMINOPHEN [Percocet 5/325] 1 - 2 tab PO Q4HR PRN #40 tab PRN Reason: Pain, Moderate (4-6)
--- NOTE | 2020-04-24 11:39 | Progress Note ---
Assessment and Plan (1) Acute appendicitis Current Visit: Yes Status: Acute Qualifiers: Appendicitis gangrene presence: without gangrene Plan to address problem: Patient had an outside CT abdomen which showed acute appendicitis Surgery was consulted 04/23 diagnostic laparoscopy with attempted laparoscopy appendectomy with conversion to open appendectomy with Dr. Calderón 04/22 IV Zosyn was initiated and discontinued postop on 04/23 04/23 clear liquid diet, advance as tolerated s/p 3 L normal saline in the emergency department (2) Hyponatremia Current Visit: Yes Status: Resolved Plan to address problem: Admit sodium 135 04/23 sodium 138 Trend BMP (3) Hypochloremia Current Visit: Yes Status: Resolved Plan to address problem: Admitting chloride 90.7 04/23 chloride 103.6 Trend BMP (4) DVT prophylaxis Current Visit: Yes Status: Acute Plan to address problem: SCDs to bilateral lower extremities History Interval history: 24-year old -[place] female who smokes marijuana ocaasionally presented to the emergency room on 04/22 complaining of right lower quadrant abdominal juani n which has been ongoing for about 3 days rated at a 7-8/10 which worsens with movement and some nausea but no vomiting or diarrhea. Patient underwent an outpatient CT scan at an urgent care which showed acute appendicitis. Surgery was consulted. Patient was made n.p.o. and started on empiric antibiotics IV fluids and IV analgesic. Today she had a diagnostic laparoscopy with attempted laparoscopic appendectomy with conversion to open appendectomy. The time of my examination she has mild abdominal pain at the surgical site. She has bowel sounds and there pressure start on a clear liquid diet. She was noted to be hypoglycemic on her a.m. labs with a blood glucose of 55 patient was taken to the OR salvage worker. Subjective Date of service: 04/24/20 Objective - Constitutional Vitals: Vital Signs - 12hr 04/24/20 04/24/20 04:32 05:08 Temperature 97.6 F Pulse Rate 79 Respiratory 16 18 Rate Blood Pressure 137/73 O2 Sat by Pulse 98 Oximetry - Labs CBC & Chem 7: 04/24/20 05:47 04/24/20 05:47 Labs: Abnormal lab results 04/24/20 04/24/20 Range/Units 05:47 05:47 WBC 11.1 H (4.5-11.0) K/mm3 MCH 33 H (28-32) pg MCHC 35 H (30-34) % RDW 12.0 L (13.2-15.2) % Lymph % (Auto) 12.5 L (13.4-35.0) % [place] % (Auto) 9.4 H (0.0-7.3) % [place] # (Auto) 1.0 H (0.0-0.8) K/mm3 Seg Neutrophils % 77.9 H (40.0-70.0) % Seg Neutrophils # 8.6 H (1.8-7.7) K/mm3 BUN 6 L (7-17) mg/dL
[2020-04-24 12:20] VITALS: BP 114/79
== END 2020-04-24 14:41 | disposition home or self-care (01) ==
LOC: ED 18:03 → 3A 22:14
PROVIDERS: ADMIT Internal Medicine Geriatric Medicine; ATTEND Internal Medicine
DX: K35.80 Unspecified acute appendicitis (principal); E87.1 Hypo-osmolality and hyponatremia; E87.8 Other disorders of electrolyte and fluid balance, not elsewhere classified
CPT/HCPCS: 36415; 44950; 80048; 80053; 84703; 85025; 85610; 85730; 86850; 86900; 86901; 88304; 96361; 96365; 96366; 96375; 96376; 99285; G0378; J1170; J1885; J2175; J2250; J2270; J2405; J2543; J2704; J2710; J7030; J7120